=== PATIENT | female | born 1960 | race Caucasian/White ===

== ENCOUNTER 2020-05-09 11:43 | Emergency (ER) | payer OTHER ==
[~2020-05-09] VITALS: Ht 170.2 cm; Wt 102.9 kg
--- NOTE | 2020-05-09 12:20 | NUR ---
PT HAS C/O BEING IN SVT. USUALLY CONVERTS OUT OF SVT, BUT HAS NOT AT THIS TIME WITH VAGAL MANEUVERS. DENIES CP. SLIGHT DIZZINESS. PT IN BED WITH CONT PATCH DRILLER, SPO2, BPQ 340 MIN, SIDE RAILS UPX 2 CALL LIGHT IN REACH/ PADS ON, 2 L NC, NS TKO PER MD. DAUGHTER IN ROOM.
[2020-05-09] MEDS ORDERED: SODIUM CHLORIDE 0.9% 1,000ML IVBOLUS ONE (12:30)
[2020-05-09] MEDS ORDERED: ADENOSINE 6 MG/2 ML IVPush ONE ×2 (12:30)
[2020-05-09] MEDS ORDERED: SODIUM CHLORIDE FLUSH 10ML SYR IVF ONE (12:30)
--- NOTE | 2020-05-09 12:34 | NUR ---
STEPHEN LAMBERT MD in room for eval modified vegal maneuver done. Pt convereted from SVT to NSR, HR 96
[2020-05-09 12:56] LABS: BASOPHILS % (AUTO) 0 % (0-1); EOSINOPHILS % (AUTO) 2 % (1-7); LYMPHOCYTES % (AUTO) 38 % (22-44); MEAN CORPUSCULAR HEMOGLOBIN 29.5 pg (27.0-34.8); MEAN CORPUSCULAR HGB CONC 34.1 g/dL (32.4-35.8); MEAN PLATELET VOLUME 9.7 fL (7.4-10.4); MONOCYTES % (AUTO) 6 % (2-9); NEUTROPHILS % (AUTO) 54 % (42-75); PLATELET COUNT 253 x10^3/uL (130-400); RED BLOOD COUNT 5.72 x10^6/uL (3.82-5.3)
[2020-05-09 12:57] LABS: MD NO
[2020-05-09 13:00] LABS: ALBUMIN 4.1 g/dL (3.4-5.0); ANION GAP 10 mmol/L (5-15); CALCIUM 9.7 mg/dL (8.5-10.1); CHLORIDE 107 mmol/L (98-107)
[2020-05-09 13:07] LABS: ALANINE AMINOTRANSFERASE 40 U/L (12-78); ALKALINE PHOSPHATASE 71 U/L (45-117); BILIRUBIN,TOTAL 0.5 mg/dL (0.2-1.0); CREATININE 1.13 mg/dL (0.55-1.02); TOTAL PROTEIN 8.4 g/dL (6.4-8.2); TROPONIN I < 0.015 ng/mL (0.000-0.045)
[2020-05-09 13:34] VITALS: BP 145/62
== END 2020-05-09 13:43 | disposition home or self-care (01) ==
LOC: ED 12:58
DX: I47.1 Supraventricular tachycardia (principal); R07.9 Chest pain, unspecified; I10 Essential (primary) hypertension; E11.9 Type 2 diabetes mellitus without complications
CPT/HCPCS: 36415; 71045; 80053; 83735; 84443; 84484; 85025; 93005; 96360; 99285; J7030

== ENCOUNTER 2020-06-07 08:21 | Outpatient (CLI) | payer OTHER | END 2020-06-07 23:59 | disposition home or self-care (01) | LOC: CVU 08:21 → EDSTATUS 09:00 → CVU 23:59 | PROVIDERS: ATTEND Internal Medicine Cardiovascular Disease | DX: I47.1 Supraventricular tachycardia (principal) | CPT/HCPCS: 93306 ==

== ENCOUNTER → 2020-07-17 | Outpatient (CLI) | payer OTHER | END | disposition home or self-care (01) | LOC: CFH 08:00 | PROVIDERS: ATTEND Physician Assistant Medical | DX: I10 Essential (primary) hypertension (principal); I47.1 Supraventricular tachycardia | CPT/HCPCS: 78452; 93017; A9502 ==